=== PATIENT | female | born 1995 | race Two or more races ===

== ENCOUNTER 2018-07-14 14:03 | Emergency (ER) | payer SELFPAY ==
[2018-07-14 14:25] LABS: #Basophils 0.1 thou/uL (0.0-0.2); #Eosinphils 0.3 thou/uL (0.0-0.7); #Lymphocytes 1.6 thou/uL (1.20-3.40); #Monocytes 0.5 thou/uL (0.11-0.59); #Neutrophils 6.4 thou/uL (1.40-6.50); %Eosinophils 2.9 % (0.0-10.0); %Lymphocytes 18.3 % (21.0-51.0); %Monocytes 5.4 % (0.0-10.0); %Neutrophils 72.4 % (42.0-75.0); Hemoglobin 15.6 g/dL (12.0-16.0); Mean Corpuscular HGB CONC 32.6 g/dL (32.0-36.0); Mean Corpuscular Hemoglobin 31.9 pg (27.0-31.0); Mean Corpuscular Volume 97.9 fL (78.0-98.0); Mean Platelet Volume 7.3 fL (7.4-10.4); Platelet Count 329 thou/uL (130-400); Red Blood Cell (RBC) Count 4.88 mill/uL (4.20-5.40); White Blood Cell (WBC) Count 8.8 thou/uL (4.8-10.8)
[2018-07-14 14:47] LABS: ALT (SGPT) 269 U/L (8-55); AST (SGOT) 260 U/L (5-34); Albumin 4.8 g/dL (3.5-5.0); Alkaline Phosphatase 87 U/L (40-150); Anion Gap 14 mmol/L (10-20); BUN (Urea Nitrogen) 12 mg/dL (7.0-18.7); Bilirubin, Total 0.9 mg/dL (0.2-1.2); Calc. Creatinine Clearance 0 mL/min (70-130); Calcium 9.8 mg/dL (7.8-10.44); Carbon Dioxide 28 mmol/L (22-29); Chloride 98 mmol/L (98-107); Estimated GFR-MDRD 83; Globulin 3.5 g/dL (2.4-3.5); Glucose 92 mg/dL (70-105); Protein, Total 8.3 g/dL (6.0-8.3); Sodium 136 mmol/L (136-145)
[2018-07-14] MEDS ORDERED: Ketorolac Tromethamine 30 MG/ML VIAL ONE (15:17)
[2018-07-14] MEDS ORDERED: Metoclopramide HCl 10 MG/2 ML VIAL ONE (15:17)
[2018-07-14] MEDS ORDERED: diphenhydrAMINE 50 MG/ML VIAL ONE (15:17)
[2018-07-14 16:07] LABS: MONO NEGATIVE CONTROL ZONE White (Negative) (White); MONO POSITIVE CONTROL Pink Line (Positive) (PINK/RED); Mononucleosis NEGATIVE (NEGATIVE)
--- NOTE | 2018-07-14 16:16 | CT ---
CT OF THE BRAIN WITHOUT CONTRAST: 07/14/18 INDICATION: History of headache. COMPARISON: None. FINDINGS: No acute infarct, hemorrhage or hydrocephalus is present. The septum pellucidum and third ventricle a re midline. Mastoid air cells are clear. IMPRESSION: No acute intracranial abnormality. POS: [id number]
[2018-07-14 16:53] LABS: HBCM Index 0.07 S/CO (0-0.79); HBSAg Index 0.23 S/CO (0-0.99); Hep A IgM AB Non-Reactive (NonReactive); Hep A IgM S/CO 0.12 S/CO (0-0.79); Hep B Surf Ag Non-Reactive S/CO (NonReactive); Hep C IgG Ab Non-Reactive (NonReactive); Hep C Index 0.13 S/CO (0-0.79); Hepatitis B Core IGM Abs Non-Reactive (NonReactive)
== END 2018-07-14 17:36 | disposition home or self-care (01) ==
LOC: ERS 14:03
DX: R51 Headache (principal); R79.89 Other specified abnormal findings of blood chemistry; F41.9 Anxiety disorder, unspecified; F32.9 Major depressive disorder, single episode, unspecified; F17.210 Nicotine dependence, cigarettes, uncomplicated
CPT/HCPCS: 70450; 80053; 80074; 85025; 86308; 96365; 96375; J1200; J1885; J2765